=== PATIENT | male | born 1955 | race Caucasian/White ===

== ENCOUNTER 2017-10-03 13:21 | Emergency (ER) | payer OTHER ==
[~2017-10-03] VITALS: Ht 177.8 cm; Wt 113.4 kg
[2017-10-03] MEDS ORDERED: CHOL10002 (13:55)
[2017-10-03] MEDS ORDERED: LEVSOD125 PO (13:55)
[2017-10-03] MEDS ORDERED: ALBU90OI INH (14:13)
[2017-10-03] MEDS ORDERED: ASPI81CH PO (14:13)
[2017-10-03] MEDS ORDERED: DILT120ERA (14:14)
[2017-10-03] MEDS ORDERED: FISH OIL 1,0001 EAC1 PO (14:15)
[2017-10-03] MEDS ORDERED: LEVSOD75 (14:16)
[2017-10-03] MEDS ORDERED: LOSA50 PO (14:16)
[2017-10-03] MEDS ORDERED: VALA500 (14:17)
[2017-10-03] MEDS ORDERED: PRAV20 PO (14:17)
== END 2017-10-03 15:33 | disposition home or self-care (01) ==
LOC: ER 13:21
DX: S09.90XA Unspecified injury of head, initial encounter (principal); S30.1XXA Contusion of abdominal wall, initial encounter; S80.212A Abrasion, left knee, initial encounter; S80.211A Abrasion, right knee, initial encounter; S29.9XXA Unspecified injury of thorax, initial encounter; E11.9 Type 2 diabetes mellitus without complications; I10 Essential (primary) hypertension; Z79.4 Long term (current) use of insulin; Z79.82 Long term (current) use of aspirin; Z79.899 Other long term (current) drug therapy; V47.5XXA Car driver injured in collision with fixed or stationary object in traffic accident, initial encounter
CPT/HCPCS: 36415; 70450; 71260; 74177; 82947; 99284; Q9967